=== PATIENT | female | born 1980 | race Two or more races ===

== ENCOUNTER 2020-12-26 22:13 | Emergency (ER) | payer SELFPAY ==
[~2020-12-26] VITALS: Ht 152.4 cm; Wt 63.5 kg
--- NOTE | 2020-12-26 22:21 | NUR ---
BIB [facility] C/O ALLERGIC REACTION AFTER DYING HER HAIR YESTERDAY C/O DIFFICULTY SWALLOWING. WENT TO YESTERDAY AND BEGAN PREDNISONE BUT STATES SHE STILL FEELS SYMPTOMS. RESPIRATION EVEN AND UNLABORED LUNGS CLEAR SO FACIAL SWELLING NOTED. PLACED ON MONITOR VSS.
--- NOTE | 2020-12-26 23:13 | NUR ---
Patient discharged to home in stable condition. Written and verbal after care instructions given. Patient verbalizes understanding of instruction.
[2020-12-26 23:18] VITALS: BP 132/86
== END 2020-12-26 23:13 | disposition home or self-care (01) ==
LOC: ER 22:17
DX: L25.2 Unspecified contact dermatitis due to dyes (principal)